=== PATIENT | female | born 1965 | race African-American/Black ===

== ENCOUNTER → 2017-04-05 | Emergency (ER) | payer BC ==
[~2017-04-05] MED LIST: ACETAMINOPHEN 1000 MG/100 ML VIAL (NON FORMULARY) IVPB ONE; ACETAMINOPHEN INJECTION 100 ML IVPB ONE; CALCIUM CARBONATE 650 MG TABLET PO STA; KETOROLAC TROMETHAMINE 30 MG/1 ML VIAL ONE; METOCLOPRAMIDE HCL INJECTION 10 MG/2 ML VIAL IVPB ONE; METOCLOPRAMIDE HCL INJECTION 10 MG/2 ML VIAL ONE; SODIUM CHLORIDE 1,000 ML IV STA
--- NOTE | 2017-04-05 15:52 | PDOC ---
History of Present Illness - General History Source: Patient Exam Limitations: No Limitations - History of Present Illness Initial Comments: 04/05/17 15:56 The patient is a 54-year-old woman with a significant past medical history of hypertension and non-insulin dependent diabetes mellitus who presents to the emergency department via walk-in for further evaluation of generalized weakness. She states that for the past 2-3 days, she has been feeling generally weak. She states that she did not check her sugars this morning but her baseline blood glucose is around the 170s. She also reports two episodes of loss watery stools with associated symptoms of abdominal pain and nausea and increased urinary output, although she has been drinking a lot of fluids. No vomiting, dysuria, flank pain, urinary hesitancy/urgency, fever, chills, loss of appetite, chest pain, lightheadedness, dizziness, palpitations. <Saniya Chacko - Last Filed: 04/05/17 19:11> - General History Source: Patient Exam Limitations: No Limitations <Jayda Acuña - Last Filed: 04/06/17 08:54> - General Stated Complaint: NAUSEA, VOMITING Past History <Saniya Chacko - Last Filed: 04/05/17 19:11> <Jayda Acuña - Last Filed: 04/06/17 08:54> - Past Medical History Allergies/Adverse Reactions: Allergies Allergy/AdvReac Type Severity Reaction Status Date / Time No Known Allergies Allergy Verified 04/05/17 16:00 Home Medications: Ambulatory Orders NK [No Known Home Medication] 04/05/17 Review of Systems - Review of Systems Able to Perform ROS?: Yes Comments:: 04/05/17 15:57 GENERAL/CONSTITUTIONAL: Yes: Generalized Weakness. No: fever, chills, loss of appetite. HEAD, EYES, EARS, NOSE AND THROAT: No: change in vision, ear pain, discharge, sore throat, throat swelling. CARDIOVASCULAR: No: chest pain, lightheadedness, palpitations, syncope RESPIRATORY: No: cough, shortness of breath, wheezing, hemoptysis, stridor. GASTROINTESTINAL: Yes: Abdominal Pain. Nausea. Diarrhea. No: vomiting, abdominal cramping, rectal bleeding, constipation. GENITOURINARY: Yes: Urinary frequency. No: dysuria, hematuria, urgency, flank pain. MUSCULOSKELET AL: No: back pain, neck pain, joint pain, muscle swelling or pain SKIN AND BREASTS: No: lesions, pallor, rash or easy bruising. NEUROLOGIC: No: headache, vertigo, paresthesias, weakness ENDOCRINE: No: unexplained weight gain or loss HEMATOLOGIC/LYMPHATIC: No: anemia, easy bleeding, swelling nodes <Saniya Chacko - Last Filed: 04/05/17 19:11> *Physical Exam - Physical Exam Comments: 04/05/17 15:57 GENERAL: Awake. Alert. The patient is in no acute distress. Weak appearing. HEAD: Normal with no signs of trauma. EYES: PERRLA, EOMI, sclera anicteric, conjunctiva clear. ENT: Ears normal, nares patent, oropharynx clear without exudates. Moist mucous membranes. NECK: Normal range of motion, supple without lymphadenopathy, JVD, or masses. LUNGS: Breath sounds equal, clear to auscultation bilaterally. No wheezes, and no crackles. HEART:Regular rate and rhythm, normal S1 and S2 without murmur, rub or gallop. ABDOMEN: Soft, nontender, normoactive bowel sounds. No guarding, no rebound. EXTREMITIES: Normal range of motion, no edema. No clubbing or cyanosis. No erythema, or tenderness. NEUROLOGICAL: Cranial nerves II through XII grossly intact. Normal speech. No focal neurological deficits. MUSCULOSKELETAL: Back non-tender to palpation, no CVA tenderness SKIN: Warm, Dry, normal turgor, no rashes or lesions noted. <Saniya Chacko - Last Filed: 04/05/17 19:11> ED Treatment Course - LABORATORY CBC & Chemistry Diagram: 04/05/17 16:40 04/05/17 16:40 <Saniya Chacko - Last Filed: 04/05/17 19:11> - LABORATORY CBC & Chemistry Diagram: 04/05/17 16:40 04/05/17 22:00 <Jayda Acuña - Last Filed: 04/06/17 08:54> Medical Decision Making - Medical Decision Making 04/05/17 15:52 A portion of this note was documented by scribe services under my direction. I have reviewed the details of the note, within reason, and agree with the documentation with the following case summary and management plan written by me. Nursing documentation reviewed and incorporated into medical decision making This is a 51 yo F with no significant past medical history who presents to the ER with a complaint of headache and generalized body aches No diarrhea No vomiting No recent travel No ill contacts ?suprapubic pain and tenderness Symptoms consistent with viral illness, however would like to r/o UTI, Pneumonia 04/05/17 18:18 Laboratory Tests 04/05/17 16:40 WBC 14.1 H Hgb 12.2 Hct 38.0 Plt Count 226 Neutrophils % 79.4 Lymphocytes % 8.1 CMP hemolyzed Pt signed out to Dr. nelson pending UA, CXR, CMP, Influenza <Jayda Acuña - Last Filed: 04/06/17 08:54> *DC/Admit/Observation/Transfer - Attestations Scribe Attestion: 04/05/17 15:57 Documentation prepared by Saniya Chacko, acting as medical technologist for Jayda Acuña MD. <Saniya Chacko - Last Filed: 04/05/17 19:11> <Jayda Acuña - Last Filed: 04/06/17 08:54> Diagnosis at time of Disposition: Dehydration - Discharge Dispostion Disposition: HOME Condition at time of disposition: Stable - Patient Instructions Printed Discharge Instructions: DI for Dehydration -- Adult
[2017-04-05 16:00] VITALS: BMI 27.7
[2017-04-05 16:52] LABS: BASOPHIL 0.3 % (0-2.0); EOSINOPHIL 0.1 % (0-4.5); MCH 27.9 pg (25.7-33.7); MEAN PLT VOLUME 12.1 fl (7.5-11.1); NEUTROPHILS 79.4 % (42.8-82.8); PLATELET COUNT 226 K/MM3 (134-434); RDW 14.7 % (11.6-15.6); WHITE BLOOD COUNT 14.1 K/mm3 (4.0-10.0)
[2017-04-05 18:49] LABS: PLATELET ESTIMATE ADEQUATE (NORMAL)
[2017-04-05 22:35] LABS: ALBUMIN 2.7 g/dl (3.4-5.0); ANION GAP 9 (8-16); BILIRUBIN,TOTAL 0.9 mg/dL (0.2-1.0); CALCIUM 7.6 mg/dL (8.5-10.1); CO2 24 mmol/L (21-32); CREATININE 0.7 mg/dL (0.55-1.02); GLUCOSE,RANDOM 175 mg/dL (74-106); SGOT/AST 9 U/L (15-37); SGPT/ALT 13 U/L (12-78); TOT PROT 6.2 g/dl (6.4-8.2)
[2017-04-05 22:37] LABS: ALK PHOS 72 U/L (45-117); TROPONIN I < 0.02 ng/ml (0.00-0.05)
[2017-04-05 23:31] LABS: URINE APPEARANCE SLCLOUDY; URINE BILIRUBIN NEGATIVE (NEGATIVE); URINE COLOR YELLOW; URINE GLUCOSE (UA) 3+ (NEGATIVE); URINE KETONE 2+ (NEGATIVE); URINE NITRITE NEGATIVE (NEGATIVE); URINE PROTEIN NEGATIVE (NEGATIVE); URINE UROBILINOGEN 4.0 E.U/dl E.U./dl (0.2-1.0)
[2017-04-05 23:35] LABS: URINE BLOOD 2+ (NEGATIVE); URINE LEUK ESTERASE 1+ (NEGATIVE)
[2017-04-05 23:36] LABS: ACETONE SERUM NEGATIVE (NEGATIVE)
--- NOTE | 2017-04-05 23:45 | PDOC ---
*Physical Exam - Vital Signs Last Vital Signs Temp Pulse Resp BP Pulse Ox 100.2 F H 117 H 18 162/87 100 04/05/17 15:52 04/05/17 15:52 04/05/17 15:52 04/05/17 15:52 04/05/17 15:52 ED Treatment Course - LABORATORY CBC & Chemistry Diagram: 04/05/17 16:40 04/05/17 22:00 - ADDITIONAL ORDERS Additional order review: Laboratory Results 04/05/17 04/05/17 04/05/17 23:20 22:00 16:40 Sodium 138 Cancelled Potassium 3.6 Cancelled Chloride 105 Cancelled Carbon Dioxide 24 Cancelled Anion Gap 9 Cancelled BUN 8 Cancelled Creatinine 0.7 Cancelled Creat Clearance w eGFR > 60 Cancelled Random Glucose 175 H Cancelled Calcium 7.6 L Cancelled Total Bilirubin 0.9 Cancelled AST 9 L Cancelled ALT 13 Cancelled Alkaline Phosphatase 72 Cancelled Creatine Kinase 58 Cancelled Troponin I < 0.02 Cancelled Total Protein 6.2 L Cancelled Albumin 2.7 L Cancelled Urine Color Yellow Urine Appearance Slcloudy Urine pH 5.0 Urine Protein Negative Urine Glucose (UA) 3+ H Urine Ketones 2+ H Urine Blood 2+ H Urine Nitrite Negative Urine Bilirubin Negative Urine Urobilinogen 4.0 e.u/dl H Ur Leukocyte Esterase 1+ H Acetone, Qual Negative L Cancelled 04/05/17 22:34 Influenza Types A,B Antigen (LUIS ARMANDO) - Final Nasopharyngeal Swab - Final 04/05/17 16:40 RBC 4.37 MCV 87.0 MCHC 32.0 RDW 14.7 MPV 12.1 H Neutrophils % 79.4 Lymphocytes % 8.1 Monocytes % 12.1 H Eosinophils % 0.1 Basophils % 0.3 - Medications Given in the ED: ED Medications Discontinued Medications Generic Name Dose Route Start Last Admin Trade Name Freq PRN Reason Stop Dose Admin Acetaminophen 1,000 mg 04/05/17 16:38 04/05/17 16:59 Ofirmev Injection - IVPB 04/05/17 16:39 1,000 mg ONCE ONE Administration Sodium Chloride 1,000 mls @ 1,000 mls/hr 04/05/17 22:28 04/05/17 22:32 Normal Saline - IV 04/05/17 23:27 1,000 mls/hr ASDIR STA Administration Metoclopramide HCl 10 mg 04/05/17 16:38 04/05/17 16:59 Reglan Injection - IVPB 04/05/17 16:39 10 mg ONCE ONE Administration Medical Decision Making - Medical Decision Making 04/05/17 23:44 Pt feeling better after IVF. No vomiting. Pt to follow up with pcp tomorrow. *DC/Admit/Observation/Transfer Diagnosis at time of Disposition: Dehydration - Discharge Dispostion Disposition: HOME Condition at time of disposition: Stable Admit: No - Patient Instructions Printed Discharge Instructions: DI for Dehydration -- Adult
[2017-04-06 01:10] VITALS: BP 146/86; PULSE 105; TEMP 99.5
--- NOTE | 2017-04-06 11:33 | EKG ---
Test Reason : Blood Pressure : / mmHG Vent. Rate : 104 BPM Atrial Rate : 104 BPM P-R Int : 136 ms QRS Dur : 062 ms QT Int : 356 ms P-R-T Axes : 060 024 018 degrees QTc Int : 468 ms SINUS TACHYCARDIA POSSIBLE LEFT ATRIAL ENLARGEMENT NONSPECIFIC T WAVE ABNORMALITY ABNORMAL ECG NO PREVIOUS ECGS AVAILABLE Confirmed by MARIBELL METCALF, DAMIEN ([id number]) on 04/06/2017 11:32:55 AM Referred By: Confirmed By:DAMIEN REYNA MD
--- NOTE | 2017-04-08 16:57 | PDOC ---
Patient Follow-up (Call Back) - Post ED Follow - Up Condition at time of discharge: Stable Disposition at time of original discharge: HOME Reason for Call Back: Abnwl. Microbiology Signs/Symptoms Improved: Yes - Disposition Additional Instructions/Notes: Sent rx for keflex. Pt instructed to scrap picker either today or tomorrow and complete entire course.
== END | disposition home or self-care (01) ==
LOC: JER 15:46
PROC: 3E0337Z Introduction of Electrolytic and Water Balance Substance into Peripheral Vein, Percutaneous Approach (ICD-10-PCS; principal; 2017-04-05)
PROC: 3E033NZ Introduction of Analgesics, Hypnotics, Sedatives into Peripheral Vein, Percutaneous Approach (ICD-10-PCS; 2017-04-05)
PROC: 3E033GC Introduction of Other Therapeutic Substance into Peripheral Vein, Percutaneous Approach (ICD-10-PCS; 2017-04-05)
DX: E86.0 Dehydration (principal); I10 Essential (primary) hypertension; E11.9 Type 2 diabetes mellitus without complications; Z79.84 Long term (current) use of oral hypoglycemic drugs
CPT/HCPCS: 36415; 71020-TC; 80053; 81003; 81015; 82009; 82550; 84484; 85025; 87086; 87186; 87804; 93005; 93010; 99283-25